=== PATIENT | male | born 1945 | race Caucasian/White ===

== ENCOUNTER 2022-03-30 18:42 | Emergency (ER) | payer MEDICARE, OTHER ==
[~2022-03-30] VITALS: Ht 160 cm; Wt 108.9 kg
--- NOTE | 2022-03-30 19:00 | NUR ---
RECIVED PT 76 YRS MALE CAME BY CARLOS ALBA WITH MUTIBLE SKIN ABRACTION IN BOTH HANDND SKIN ABRATION ON FOR HEAD AND LOWER EXTRAMITY
--- NOTE | 2022-03-30 19:27 | NUR ---
WATING TO BE SEEN BY PROVIDER
--- NOTE | 2022-03-30 19:36 | NUR ---
Elmira busch in [facility] - 03/30/22 at 1939 by LOW HAND OFF TO QUAN
--- NOTE | 2022-03-30 19:38 | NUR ---
HAND OFF DENIS BROOKE
[2022-03-30 21:43] VITALS: BP 140/77
--- NOTE | 2022-03-30 21:43 | NUR ---
crutches given per md
--- NOTE | 2022-03-30 21:43 | NUR ---
Patient discharged to home in stable condition. Written and verbal after care instructions given. Patient verbalizes understanding of instruction.
== END 2022-03-30 21:43 | disposition home or self-care (01) ==
LOC: ER 18:46
DX: S93.401A Sprain of unspecified ligament of right ankle, initial encounter (principal); S00.83XA Contusion of other part of head, initial encounter; M54.2 Cervicalgia; I10 Essential (primary) hypertension; E78.00 Pure hypercholesterolemia, unspecified; E11.9 Type 2 diabetes mellitus without complications; V89.2XXA Person injured in unspecified motor-vehicle accident, traffic, initial encounter; Y93.89 Activity, other specified; Y92.89 Other specified places as the place of occurrence of the external cause; Y99.8 Other external cause status
CPT/HCPCS: 70450-TC; 71045-TC; 72125-TC; 73130-TC; 73564-TC; 73590-TC; 73610-TC